=== PATIENT | male | born 1940 | race Caucasian/White ===

== ENCOUNTER → 2020-01-14 | Outpatient (CLI) | payer MEDICARE, OTHER ==
--- NOTE | 2020-01-14 17:08 | RADIOLOGY REPORT (SQ) ---
EXAM DESCRIPTION: PET CT SKULL/THIGH IMAGES COMPLETED DATE/TIME: 01/14/2020 1:57 pm REASON FOR STUDY: OTHER NONSPECIFIC ABNORMAL FINDING OF LUNG FIELD (R91.8) R91.8 OTHER NONSPECIFIC ABNORMAL FINDING OF LUNG FIELD COMPARISON: CT report 07/02/2019 RADIONUCLIDE AND DOSE: 10.88 mCi F18 FDG The route of agent administration: Intravenous FASTING BLOOD SUGAR: 132 mg/dl CONTRAST TYPE AND DOSE: No CT contrast given. TECHNIQUE: Blood glucose level was verified. Above dose of FDG was injected intravenously. 2-D seg mented attenuation correction images were obtained from the base of the skull to the midthighs. Nonc ontrast CT images were obtained for attenuation correction and fusion with emission images. CT image s were performed without oral or intravenous contrast and are not sensitive for parenchymal lesions. A series of overlapping emission PET images were obtained. Images reviewed and manipulated at [facility] work station by the radiologist. Images stored on PACS. LIMITATIONS: None. FINDINGS: HEAD AND NECK: No areas of abnormal metabolic activity in the soft tissues of the head and neck. Scattered carotid vascular calcifications. CHEST: Partially calcified left upper lobe perihilar mass measuring 3.0 cm (series 2, image 95) witho ut significant FDG uptake (max SUV 1.3). There are enlarged mediastinal nodes. For reference there is a precarinal node measuring 13 mm in short axis (series 3, image 85) with mild FDG uptake (max SUV 2.0). Retrocrural lymph node measuring 12 mm also without pathologic uptake and reportedly stable ( max SUV 1.4). No other areas of pathologic uptake within the thorax. Scattered three-vessel coronar y atherosclerosis. Cardiomegaly. Small bilateral pleural effusions. Few punctate calcified basilar granuloma. ABDOMEN AND PELVIS: No areas of abnormal metabolic activity in the abdomen or pelvis. Expected physi ologic activity is present in the genitourinary system and bowel. No evidence of acute intra-abdomin al/pelvic process. Aortoiliac atherosclerosis. Left renal peripelvic cyst. Small volume pelvic asc ites. Asymmetric soft tissue density within right inguinal canal measuring approximately 3.1 x 2.5 c m without significant increased uptake (max SUV 1.4). PROXIMAL LOWER EXTREMITIES: No areas of abnormal metabolic activity in the soft tissues of the lower extremities. BONES: No abnormal metabolic activity in the visualized skeleton. ADDITIONAL CT FINDINGS: As above. OTHER: Background hepatic activity max SUV 2.7. IMPRESSION: 1. Partially calcified left upper lobe perihilar mass measuring 3 cm without significan t increased uptake (max SUV 1.3). No priors available for comparison although mass previously report ed as measuring 3.0 cm on exam dated 07/02/2019. 2. Mediastinal adenopathy also without increased uptake (max SUV 2.0). 3. Asymmetric soft tissue density within the right inguinal canal measuring approximately 3.1 x 2.5 cm without abnormal uptake (max SUV 1.4). Recommend correlation with prior exams. Ultrasound could be considered for further characterization. 4. No areas of pathologic FDG uptake throughout the scan. TECHNICAL DOCUMENTATION: JOB ID: [id number] 2010 [email or web address]- All Rights Reserved Reading location - IP/workstation name: [email or web address]
== END ==
LOC: RAD 09:46
PROVIDERS: ATTEND Internal Medicine Hematology & Oncology
DX: R91.8 Other nonspecific abnormal finding of lung field (principal); R59.0 Localized enlarged lymph nodes; I25.10 Atherosclerotic heart disease of native coronary artery without angina pectoris; J90 Pleural effusion, not elsewhere classified; I51.7 Cardiomegaly
CPT/HCPCS: 78815; A9552

== ENCOUNTER → 2020-05-14 | Outpatient (CLI) | payer MEDICARE, OTHER ==
[2020-05-14 12:26] LABS: HEMATOCRIT 31.1 % (37.9-51.0); HEMOGLOBIN 10.1 g/dL (13.5-17.0); MEAN CORPUSCULAR HEMOGLOBIN 26.3 pg (27.0-33.4); MEAN CORPUSCULAR HGB CONC 32.5 g/dL (32.0-36.0); MEAN CORPUSCULAR VOLUME 81 fl (80-97); PLATELET COUNT 436 10^3/uL (150-450); RED BLOOD COUNT 3.84 10^6/uL (4.35-5.55); WHITE BLOOD COUNT 9.9 10^3/uL (4.0-10.5)
[2020-05-14 12:32] LABS: PROTHROMBIN TIME 18.3 SEC (11.4-15.4)
== END ==
LOC: OD 11:44
PROVIDERS: ATTEND Registered Nurse
DX: K92.1 Melena (principal); Z79.01 Long term (current) use of anticoagulants; Z95.811 Presence of heart assist device
CPT/HCPCS: 36415; 82272; 85027; 85610

== ENCOUNTER → 2020-05-22 | Outpatient (CLI) | payer MEDICARE, OTHER ==
[2020-05-22 12:42] LABS: HEMATOCRIT 26.4 % (37.9-51.0); HEMOGLOBIN 8.6 g/dL (13.5-17.0); MEAN CORPUSCULAR HEMOGLOBIN 26.3 pg (27.0-33.4); MEAN CORPUSCULAR HGB CONC 32.6 g/dL (32.0-36.0); MEAN CORPUSCULAR VOLUME 81 fl (80-97); PLATELET COUNT 410 10^3/uL (150-450); RED BLOOD COUNT 3.28 10^6/uL (4.35-5.55); RED CELL DISTRIBUTION WIDTH 19.2 % (11.5-14.0); WHITE BLOOD COUNT 8.1 10^3/uL (4.0-10.5)
== END ==
LOC: OD 11:50
PROVIDERS: ATTEND Registered Nurse
DX: D64.9 Anemia, unspecified (principal); K92.1 Melena; Z79.01 Long term (current) use of anticoagulants
CPT/HCPCS: 36415; 85027

== ENCOUNTER → 2020-05-26 | Outpatient (CLI) | payer MEDICARE, OTHER ==
[2020-05-26 12:48] LABS: HEMATOCRIT 24.6 % (37.9-51.0); MEAN CORPUSCULAR HEMOGLOBIN 25.6 pg (27.0-33.4); MEAN CORPUSCULAR VOLUME 80 fl (80-97); PLATELET COUNT 404 10^3/uL (150-450); RED BLOOD COUNT 3.08 10^6/uL (4.35-5.55); WHITE BLOOD COUNT 9.5 10^3/uL (4.0-10.5)
[2020-05-26 12:57] LABS: HEMOGLOBIN 7.9 g/dL (13.5-17.0)
== END ==
LOC: OD 11:36
PROVIDERS: ATTEND Registered Nurse
DX: K92.1 Melena (principal); D64.9 Anemia, unspecified; Z79.01 Long term (current) use of anticoagulants
CPT/HCPCS: 36415; 85027